=== PATIENT | male | born 1935 | race Hispanic/Latino ===

== ENCOUNTER 2017-11-10 11:17 | Inpatient (IN) | payer OTHER ==
[~2017-11-10] VITALS: Ht 170.2 cm; Wt 90.0 kg
[2017-11-10 11:46] LABS: BASOPHILS % (AUTO) 0.3 % (0.0-5.0); EOSINOPHILS % (AUTO) 0.3 % (0.0-8.0); HEMATOCRIT 29.5 % (42-54); LYMPHOCYTES % (AUTO) 9.7 % (21.0-51.0); MEAN CORPUSCULAR HEMOGLOBIN 25.2 pg (27.0-33.0); MEAN CORPUSCULAR HGB CONC 32.5 g/dL (32.0-36.0); MEAN CORPUSCULAR VOLUME 77.6 fL (79-99); MONOCYTES % (AUTO) 5.6 % (3.0-13.0); NEUTROPHILS % (AUTO) 84.1 % (40.0-77.0); PLATELET COUNT (AUTO) 414 K/uL (130-400); RED CELL DISTRIBUTION WIDTH 15.4 % (11.0-15.5); WHITE BLOOD COUNT (AUTO) 9.3 K/uL (4.8-10.8)
[2017-11-10 11:58] LABS: INR 1.05 (0.85-1.15); PARTIAL THROMBOPLASTIN TIME 30.1 SEC (26.3-35.5)
[2017-11-10] MEDS ORDERED: SODIUM CHLORIDE 0.9% 1000ML 1,000 ML IV ONE (12:52)
[2017-11-10 12:58] LABS: ALANINE AMINOTRANSFERASE 29 U/L (12-78); ALBUMIN 2.3 g/dL (3.5-5.0); ASPARTATE AMINOTRANSFERASE 51 U/L (10-37); BILIRUBIN,TOTAL 0.4 mg/dL (0.2-1.0); CARBON DIOXIDE 12 mmol/L (21-32); CHLORIDE 99 mmol/L (101-111); CREATINE KINASE MB 13.4 ng/mL (0.5-3.6); GLOMERULAR FILTR. RATE CALC 5 mL/min (>60); GLUCOSE,RANDOM 185 mg/dL (70-105); MYOGLOBIN 4744 ng/mL (10-92); SODIUM SERUM 132 mmol/L (136-145); TOTAL PROTEIN, SERUM 8.4 g/dL (6.0-8.3); TROPONIN I < 0.04 ng/mL (0.00-0.06)
[2017-11-10 13:00] LABS: CREATINE KINASE, TOTAL 1613 U/L (21-232); CREATININE 9.8 mg/dL (0.5-1.5); POTASSIUM 7.1 mmol/L (3.5-5.1); UREA NITROGEN, BLOOD 142 mg/dL (7-18)
[2017-11-10] MEDS ORDERED: SODIUM POLYSTYRENE SULFONATE 15 GM/60 ML ML ONE (13:43)
[2017-11-10] MEDS ORDERED: GUAIFENESIN-DM 200/20 MG 10 ML PO PRN (13:45)
[2017-11-10] MEDS ORDERED: ACETAMINOPHEN 325 MG TAB PO PRN ×2 (13:45)
[2017-11-10] MEDS ORDERED: MAG HYDROX/AL HYDROX/SIMETH ES 30 ML SUSP UDCUP PO PRN (13:45)
[2017-11-10] MEDS ORDERED: LACTULOSE 20 GM/30 ML UDCUP PO PRN (13:45)
[2017-11-10] MEDS ORDERED: ONDANSETRON HCL 4 MG/2 ML VIAL IV PRN (13:45)
[2017-11-10 16:32] LABS: APPEARANCE,URINE CLEAR (CLEAR); BILIRUBIN,URINE NEGATIVE (NEGATIVE); COLOR,URINE YELLOW (YELLOW); GLUCOSE, URINE (UA) NEGATIVE (NEGATIVE); KETONES,URINE NEGATIVE (NEGATIVE); LEUKOCYTE ESTERASE ,URINE LARGE (NEGATIVE); NITRATE,URINE POSITIVE (NEGATIVE); OCCULT BLOOD,URINE LARGE (NEGATIVE); PROTEIN,URINE TRACE (NEGATIVE); UROBILINOGEN,URINE 0.2 mg/dL (0.2-1.0)
[2017-11-10 16:40] LABS: BACTERIA,URINE Moderate /HPF (None Seen); SQUAMOUS EPITHELIAL CELL,UR None Seen /LPF (0-2)
[2017-11-10 17:18] LABS: CREATININE 8.8 mg/dL (0.5-1.5); POTASSIUM 6.7 mmol/L (3.5-5.1)
[2017-11-10 18:29] VITALS: BP 125/47
[2017-11-10 19:00] VITALS: BP 124/54
[2017-11-10 20:00] VITALS: BP 124/51
[2017-11-10 21:00] VITALS: BP 133/67
[2017-11-10] MEDS: FAMOTIDINE/PF 20 MG/2 ML VIAL IV SCH (21:24)
[2017-11-10] MEDS: SODIUM CHLORIDE 0.9% 1000ML 1,000 ML IV SCH (21:25)
[2017-11-10 22:00] VITALS: BP 128/87
[2017-11-10 23:00] VITALS: BP 132/59
[2017-11-10] MEDS ORDERED: CEFTRIAXONE 1GM/D5W 50ML 50 ML IV SCH (23:15)
[2017-11-10] MEDS ORDERED: CEFTRIAXONE SODIUM 1 GM ONE (23:18)
[2017-11-10] MEDS ORDERED: SODIUM CHLORIDE 0.9% 10 ML VIAL ONE (23:19)
[2017-11-10] MEDS ORDERED: GLUCAGON 1MG KIT 1 MG ML IM PRN (23:45)
[2017-11-11] VITALS (18 sets, daily range): BP systolic 99–168; BP diastolic 42–91
[2017-11-11] MEDS ORDERED: SODIUM BICARB 50MEQ 50ML VIAL ONE (00:22)
[2017-11-11] MEDS ORDERED: CALCIUM GLUCONATE 1 GM/10 ML VIAL IV ONE (00:22)
[2017-11-11] MEDS ORDERED: INSULIN HUMULIN R 100 UNIT/ML 3ML ONE (00:23)
[2017-11-11] MEDS ORDERED: PHARMACY COMMUNICATION MISC SCH (00:30)
[2017-11-11] MEDS ORDERED: CALCIUM CHLORIDE 100 MG/ML 10 ML SYG IVP SCH (00:45)
[2017-11-11] MEDS ORDERED: INSULIN HUMULIN R 100 UNIT/ML 3ML SQ SCH (00:45)
[2017-11-11] MEDS ORDERED: SODIUM BICARB 8.4% 50ML SYRINGE IVP SCH (00:45)
[2017-11-11] MEDS ORDERED: DEXTROSE 50%-WATER 50 ML DISP.SYRIN IV SCH (00:45)
[2017-11-11] MEDS ORDERED: ONDANSETRON HCL 4 MG/2 ML VIAL IVP PRN (01:00)
[2017-11-11] MEDS ORDERED: ZOSYN 3.375GM+NS 50ML 50 ML IV SCH (01:00)
[2017-11-11] MEDS ORDERED: ACETAMINOPHEN 325 MG TAB PO PRN (01:00)
[2017-11-11] MEDS ORDERED: FE F1CAP33 PO (02:14)
[2017-11-11] MEDS ORDERED: GUAI118S23 PO (02:14)
[2017-11-11] MEDS ORDERED: METF10004 PO (02:14)
[2017-11-11] MEDS ORDERED: TORS20TA PO (02:14)
[2017-11-11] MEDS ORDERED: XALA2.5OS OD (02:14)
[2017-11-11] MEDS ORDERED: FLUC150T PO (02:14)
[2017-11-11] MEDS ORDERED: TRAM50TA4 PO (02:14)
[2017-11-11] MEDS ORDERED: LISI1TAB13 PO (02:14)
[2017-11-11] MEDS ORDERED: POTA20TA82 PO (02:14)
[2017-11-11] MEDS ORDERED: ATOR20TA65 PO (02:14)
[2017-11-11] MEDS ORDERED: [UNRECOGNIZED DRUG - OTHER] PO (02:14)
[2017-11-11] MEDS ORDERED: TAMS-1 PO (02:14)
[2017-11-11] MEDS ORDERED: ASPI-555 PO (02:14)
[2017-11-11] MEDS ORDERED: CLOT15CR4 TP (02:14)
[2017-11-11] MEDS ORDERED: GLIP10TA9 PO (02:14)
[2017-11-11] MEDS ORDERED: DOXY100T19 PO (02:14)
[2017-11-11 04:18] LABS: HEMATOCRIT 26.7 % (42-54); MEAN CORPUSCULAR HEMOGLOBIN 25.1 pg (27.0-33.0); MEAN CORPUSCULAR HGB CONC 33.4 g/dL (32.0-36.0); MEAN CORPUSCULAR VOLUME 74.9 fL (79-99); PLATELET COUNT (AUTO) 381 K/uL (130-400); RED BLOOD CELL COUNT(AUTO) 3.56 MIL/uL (4.50-6.20); RED CELL DISTRIBUTION WIDTH 15.5 % (11.0-15.5); WHITE BLOOD COUNT (AUTO) 6.6 K/uL (4.8-10.8)
[2017-11-11 04:37] LABS: HEMOGLOBIN A1C 9.3 % (4.0-6.0)
[2017-11-11 04:43] LABS: CREATININE 6.5 mg/dL (0.5-1.5); MAGNESIUM 2.4 mg/dL (1.80-2.40); PHOSPHORUS 6.7 mg/dL (2.5-4.9); POTASSIUM 4.8 mmol/L (3.5-5.1); THYROID STIMULATING HORMONE 1.22 uIU/mL (0.36-3.74)
[2017-11-11] MEDS: INSULIN HUMULIN R 100 UNIT/ML 3ML SQ SCH ×4 (06:16→21:00)
[2017-11-11] MEDS: PANTOPRAZOLE SODIUM 40 MG TABLET.DR PO SCH (09:00)
[2017-11-11] MEDS: THIAMINE HCL 100 MG/ML 2ML VIAL IVP SCH (09:41)
[2017-11-11] MEDS: FAMOTIDINE/PF 20 MG/2 ML VIAL IV SCH ×2 (09:41→22:13)
[2017-11-11] MEDS ORDERED: GUAIFENESIN-CODEINE 5 ML SYRUP PO PRN (09:45)
[2017-11-11] MEDS: FLUCONAZOLE 100 MG TAB PO SCH (10:53)
[2017-11-11] MEDS: DOXYCYCLINE HYCLATE 100 MG TABLET PO SCH ×2 (10:53→22:13)
[2017-11-11] MEDS: GLIPIZIDE 5 MG TABLET PO SCH (10:54)
[2017-11-11] MEDS: SODIUM CHLORIDE 0.9% 1000ML 1,000 ML IV SCH ×2 (10:57→22:14)
[2017-11-11] MEDS: LATANOPROST 2.5 ML DROPS OD SCH (10:57)
[2017-11-11] MEDS: TRAMADOL HCL 50 MG TABLET PO SCH ×3 (10:59→21:15)
[2017-11-11 11:05] LABS: CREATININE 5.6 mg/dL (0.5-1.5); POTASSIUM 4.7 mmol/L (3.5-5.1)
[2017-11-11] MEDS: DEXTROSE 50%-WATER 50 ML DISP.SYRIN IV PRN (16:13)
[2017-11-11 17:23] LABS: CREATININE 4.8 mg/dL (0.5-1.5); POTASSIUM 4.4 mmol/L (3.5-5.1)
[2017-11-11] MEDS ORDERED: ZINC OXIDE OINT 56.7 GM TP SCH (21:00)
[2017-11-11] MEDS ORDERED: WATER FOR INJECTION,STERILE 20 ML VIAL ONE (22:06)
[2017-11-11] MEDS: CEFTRIAXONE SODIUM 1 GM IVP SCH (22:13)
[2017-11-11] MEDS: SODIUM BICARBONATE 650 MG TAB PO SCH (22:13)
[2017-11-11] MEDS: CLOTRIMAZOLE/BETAMETHASONE DIP 45 GM CREAM.GM. TP SCH (23:09)
[2017-11-11] MEDS: HONEY 1 APPL/ML TUBE TP SCH (23:10)
[2017-11-11] MEDS: BALSAM PERU/CASTOR OIL 60 GM TUBE TP SCH (23:11)
[2017-11-12] MEDS: TRAMADOL HCL 50 MG TABLET PO SCH ×4 (02:32→21:15)
[2017-11-12 03:41] VITALS: BP 129/58
[2017-11-12 05:38] LABS: HEMATOCRIT 28.6 % (42-54); MEAN CORPUSCULAR HEMOGLOBIN 25.4 pg (27.0-33.0); MEAN CORPUSCULAR HGB CONC 33.7 g/dL (32.0-36.0); MEAN CORPUSCULAR VOLUME 75.5 fL (79-99); PLATELET COUNT (AUTO) 377 K/uL (130-400); RED BLOOD CELL COUNT(AUTO) 3.78 MIL/uL (4.50-6.20); RED CELL DISTRIBUTION WIDTH 15.7 % (11.0-15.5); WHITE BLOOD COUNT (AUTO) 8.6 K/uL (4.8-10.8)
[2017-11-12 05:45] LABS: CREATININE 3.4 mg/dL (0.5-1.5); POTASSIUM 4.2 mmol/L (3.5-5.1)
[2017-11-12] MEDS: SODIUM CHLORIDE 0.9% 1000ML 1,000 ML IV SCH (05:45)
[2017-11-12 05:54] LABS: BAND NEUTROPHILS % (MANUAL) 1 % (0-2); BASOPHILS % (MANUAL) 2 % (0-2); LYMPHOCYTES % (MANUAL) 14 % (22-44); MAN.DIFF COMMENT-IMPRESSION MANUAL DIFFERENTIAL; MONOCYTES % (MANUAL) 9 % (2-9); SEGMENTED NEUTROPHILS % 74 % (40-70)
[2017-11-12 05:55] LABS: PLATELET MORPHOLOGY COMMENT ADEQUATE
[2017-11-12] MEDS: INSULIN HUMULIN R 100 UNIT/ML 3ML SQ SCH ×4 (05:56→21:00)
[2017-11-12 06:30] LABS: % IRON SATURATION 18.2 % (30-44)
[2017-11-12 07:03] VITALS: BP 125/66
[2017-11-12] MEDS: LATANOPROST 2.5 ML DROPS OD SCH (09:00)
[2017-11-12] MEDS: ATORVASTATIN CALCIUM 20 MG TABLET PO SCH (10:20)
[2017-11-12] MEDS: PANTOPRAZOLE SODIUM 40 MG TABLET.DR PO SCH (10:20)
[2017-11-12] MEDS: THIAMINE HCL 100 MG/ML 2ML VIAL IVP SCH (10:20)
[2017-11-12] MEDS: FAMOTIDINE/PF 20 MG/2 ML VIAL IV SCH ×2 (10:20→21:04)
[2017-11-12] MEDS: DOXYCYCLINE HYCLATE 100 MG TABLET PO SCH ×2 (10:21→21:04)
[2017-11-12] MEDS: GLIPIZIDE 5 MG TABLET PO SCH (10:21)
[2017-11-12] MEDS: SODIUM BICARBONATE 650 MG TAB PO SCH ×2 (10:21→21:04)
[2017-11-12] MEDS: ASPIRIN 81 MG EC TAB PO SCH (10:21)
[2017-11-12] MEDS: FLUCONAZOLE 100 MG TAB PO SCH (10:21)
[2017-11-12] MEDS: TAMSULOSIN HCL 0.4 MG CAP.ER.24H PO SCH (10:22)
[2017-11-12] MEDS: CLOTRIMAZOLE/BETAMETHASONE DIP 45 GM CREAM.GM. TP SCH ×2 (10:22→21:05)
[2017-11-12] MEDS: BALSAM PERU/CASTOR OIL 60 GM TUBE TP SCH ×2 (10:23→21:05)
[2017-11-12] MEDS: HONEY 1 APPL/ML TUBE TP SCH (10:23)
[2017-11-12 11:00] VITALS: BP 128/65
[2017-11-12 15:00] VITALS: BP 105/50
[2017-11-12] MEDS: DEXTROSE 50%-WATER 50 ML DISP.SYRIN IV PRN ×2 (15:13→21:24)
[2017-11-12 19:17] VITALS: BP 111/72
[2017-11-12] MEDS ORDERED: WATER FOR INJECTION,STERILE 20 ML VIAL ONE (20:50)
[2017-11-12] MEDS: CEFTRIAXONE SODIUM 1 GM IVP SCH (21:04)
[2017-11-12 23:08] VITALS: BP 126/62
[2017-11-13] MEDS: TRAMADOL HCL 50 MG TABLET PO SCH ×4 (00:39→22:28)
[2017-11-13 03:25] VITALS: BP 136/57
[2017-11-13 03:57] LABS: CREATININE 2.4 mg/dL (0.5-1.5); POTASSIUM 3.4 mmol/L (3.5-5.1)
[2017-11-13] MEDS: DEXTROSE 50%-WATER 50 ML DISP.SYRIN IV PRN (04:11)
[2017-11-13] MEDS: INSULIN HUMULIN R 100 UNIT/ML 3ML SQ SCH ×3 (07:30→22:31)
[2017-11-13] MEDS: TAMSULOSIN HCL 0.4 MG CAP.ER.24H PO SCH (08:14)
[2017-11-13] MEDS: THIAMINE HCL 100 MG/ML 2ML VIAL IVP SCH (08:14)
[2017-11-13] MEDS: PANTOPRAZOLE SODIUM 40 MG TABLET.DR PO SCH (08:14)
[2017-11-13] MEDS: DOXYCYCLINE HYCLATE 100 MG TABLET PO SCH ×2 (08:14→22:12)
[2017-11-13] MEDS: ATORVASTATIN CALCIUM 20 MG TABLET PO SCH (08:14)
[2017-11-13] MEDS: FLUCONAZOLE 100 MG TAB PO SCH (08:14)
[2017-11-13] MEDS: SODIUM BICARBONATE 650 MG TAB PO SCH ×2 (08:14→22:12)
[2017-11-13] MEDS: ASPIRIN 81 MG EC TAB PO SCH (08:14)
[2017-11-13 08:15] VITALS: BP 117/74
[2017-11-13] MEDS: CLOTRIMAZOLE/BETAMETHASONE DIP 45 GM CREAM.GM. TP SCH (08:15)
[2017-11-13] MEDS: GLIPIZIDE 5 MG TABLET PO SCH (08:15)
[2017-11-13] MEDS: HONEY 1 APPL/ML TUBE TP SCH (08:15)
[2017-11-13] MEDS: FAMOTIDINE/PF 20 MG/2 ML VIAL IV SCH ×2 (08:16→22:12)
[2017-11-13] MEDS: LATANOPROST 2.5 ML DROPS OD SCH (08:16)
[2017-11-13] MEDS: BALSAM PERU/CASTOR OIL 60 GM TUBE TP SCH (08:16)
[2017-11-13 11:13] VITALS: BP 136/68
[2017-11-13 16:53] VITALS: BP 130/61
[2017-11-13 19:30] VITALS: BP 136/66
[2017-11-13] MEDS: CEFTRIAXONE SODIUM 1 GM IVP SCH (22:12)
[2017-11-13] MEDS ORDERED: WATER FOR INJECTION,STERILE 20 ML VIAL ONE (22:24)
[2017-11-13 23:05] VITALS: BP 136/72
[2017-11-14] MEDS: CLOTRIMAZOLE/BETAMETHASONE DIP 45 GM CREAM.GM. TP SCH ×2 (00:09→09:43)
[2017-11-14] MEDS: BALSAM PERU/CASTOR OIL 60 GM TUBE TP SCH ×2 (00:10→09:43)
[2017-11-14 03:00] VITALS: BP 125/48
[2017-11-14 04:11] LABS: HEMATOCRIT 26.4 % (42-54); MEAN CORPUSCULAR HEMOGLOBIN 25.6 pg (27.0-33.0); MEAN CORPUSCULAR HGB CONC 33.5 g/dL (32.0-36.0); MEAN CORPUSCULAR VOLUME 76.5 fL (79-99); NUCLEATED RED BLOOD CELLS 0.1 % (0.0-0.19); PLATELET COUNT (AUTO) 329 K/uL (130-400); RED BLOOD CELL COUNT(AUTO) 3.45 MIL/uL (4.50-6.20); RED CELL DISTRIBUTION WIDTH 15.4 % (11.0-15.5); WHITE BLOOD COUNT (AUTO) 9.1 K/uL (4.8-10.8)
[2017-11-14 04:17] LABS: CREATININE 1.9 mg/dL (0.5-1.5); POTASSIUM 3.6 mmol/L (3.5-5.1)
[2017-11-14] MEDS: TRAMADOL HCL 50 MG TABLET PO SCH ×3 (04:25→15:15)
[2017-11-14] MEDS: INSULIN HUMULIN R 100 UNIT/ML 3ML SQ SCH ×4 (07:30→16:51)
[2017-11-14 07:46] VITALS: BP 122/63
[2017-11-14] MEDS: HONEY 1 APPL/ML TUBE TP SCH ×2 (08:16→09:43)
[2017-11-14] MEDS: FAMOTIDINE/PF 20 MG/2 ML VIAL IV SCH (09:40)
[2017-11-14] MEDS: LATANOPROST 2.5 ML DROPS OD SCH (09:41)
[2017-11-14] MEDS: ASPIRIN 81 MG EC TAB PO SCH (09:41)
[2017-11-14] MEDS: THIAMINE HCL 100 MG/ML 2ML VIAL IVP SCH (09:41)
[2017-11-14] MEDS: ATORVASTATIN CALCIUM 20 MG TABLET PO SCH (09:42)
[2017-11-14] MEDS: FLUCONAZOLE 100 MG TAB PO SCH (09:42)
[2017-11-14] MEDS: PANTOPRAZOLE SODIUM 40 MG TABLET.DR PO SCH (09:42)
[2017-11-14] MEDS: DOXYCYCLINE HYCLATE 100 MG TABLET PO SCH (09:42)
[2017-11-14] MEDS: TAMSULOSIN HCL 0.4 MG CAP.ER.24H PO SCH (09:42)
[2017-11-14] MEDS: SODIUM BICARBONATE 650 MG TAB PO SCH (09:42)
[2017-11-14 11:17] VITALS: BP 135/60
[2017-11-14 16:43] VITALS: BP 108/67
[2017-11-14 21:27] VITALS: BP 138/62
== END 2017-11-14 21:45 | DRG 683 ==
LOC: EDH 11:17 → EDHIP 13:45 → 2BH 18:08 → 3CH 11-11 17:48
PROVIDERS: ADMIT Family Medicine; ATTEND Family Medicine
DX: N17.9 Acute kidney failure, unspecified (principal); N39.0 Urinary tract infection, site not specified; L89.159 Pressure ulcer of sacral region, unspecified stage; E11.21 Type 2 diabetes mellitus with diabetic nephropathy; E11.40 Type 2 diabetes mellitus with diabetic neuropathy, unspecified; E87.2 Acidosis; E11.22 Type 2 diabetes mellitus with diabetic chronic kidney disease; E11.51 Type 2 diabetes mellitus with diabetic peripheral angiopathy without gangrene; E87.1 Hypo-osmolality and hyponatremia; E87.5 Hyperkalemia; D64.9 Anemia, unspecified; E78.5 Hyperlipidemia, unspecified; I12.9 Hypertensive chronic kidney disease with stage 1 through stage 4 chronic kidney disease, or unspecified chronic kidney disease; N18.9 Chronic kidney disease, unspecified; E11.621 Type 2 diabetes mellitus with foot ulcer; E11.649 Type 2 diabetes mellitus with hypoglycemia without coma; E66.9 Obesity, unspecified; B96.89 Other specified bacterial agents as the cause of diseases classified elsewhere; B96.1 Klebsiella pneumoniae [K. pneumoniae] as the cause of diseases classified elsewhere; F03.90 Unspecified dementia, unspecified severity, without behavioral disturbance, psychotic disturbance, mood disturbance, and anxiety; L97.509 Non-pressure chronic ulcer of other part of unspecified foot with unspecified severity; N40.0 Benign prostatic hyperplasia without lower urinary tract symptoms; Z91.14 Patient's other noncompliance with medication regimen; Z91.15 Patient's noncompliance with renal dialysis; Z91.19 Patient's noncompliance with other medical treatment and regimen; Z68.31 Body mass index [BMI] 31.0-31.9, adult
CPT/HCPCS: 36415; 71010; 76770; 80048; 80053; 81001; 82550; 82553; 82728; 82948; 83036; 83540; 83550; 83605; 83735; 83874; 84100; 84132; 84443; 84484; 85025; 85027; 85610; 85730; 87040; 87070; 87076; 87088; 87186; 93005; 97039; A4218; J0610; J0696; J1815; J2543; J3411; J3490; J7030; J7070

== ENCOUNTER → 2018-08-02 | Outpatient (CLI) | payer OTHER ==
[~2018-08-02] MED LIST: ASPI-555 PO; ATOR20TA65 PO; CLOT15CR4 TP; DOXY100T19 PO; FE F1CAP33 PO; FLUC150T PO; GLIP10TA9 PO; GUAI118S23 PO; LISI1TAB13 PO; METF-446 PO; POTA20TA82 PO; TAMS-1 PO; TORS20TA PO; TRAM50TA4 PO; XALA2.5OS OD; [UNRECOGNIZED DRUG - OTHER] PO
== END | disposition home or self-care (01) ==
LOC: SHCH 08:54
PROVIDERS: ATTEND Internal Medicine Cardiovascular Disease
DX: Z09 Encounter for follow-up examination after completed treatment for conditions other than malignant neoplasm (principal); I10 Essential (primary) hypertension; E11.9 Type 2 diabetes mellitus without complications; E78.5 Hyperlipidemia, unspecified; Z87.891 Personal history of nicotine dependence; Z72.89 Other problems related to lifestyle
CPT/HCPCS: 93971

== ENCOUNTER → 2018-09-20 | Outpatient (CLI) | payer OTHER | END | disposition home or self-care (01) | LOC: SHCH 13:53 | PROVIDERS: ATTEND Internal Medicine Cardiovascular Disease | DX: Z09 Encounter for follow-up examination after completed treatment for conditions other than malignant neoplasm (principal) | CPT/HCPCS: 93971 ==